=== PATIENT | female | born 1960 | race Caucasian/White ===

== ENCOUNTER 2016-05-31 15:18 | Emergency (ER) | payer SELFPAY ==
[~2016-05-31] VITALS: Ht 170.2 cm; Wt 59.0 kg
[~2016-05-31 15:18] MED LIST: ACET1TAB40 PO; AMIT75TA2 PO; CARB100T2 PO; CYCL-319 PO; DOCU-144 PO; ESTR1.2510 PO; FIORICET PO; GABA-526 PO; LORA1TAB PO; LOSA1TAB19 PO; NAPR-688 PO; NAPR550T3 PO; ONDA4TAB8 PO; PROM25TA14 PO; SMV40T PO
[2016-05-31 15:43] VITALS: Ht 170.2 cm; Wt 59.0 kg
== END 2016-05-31 20:56 | disposition left against medical advice (07) ==
LOC: E/R 15:18
DX: Z53.21 Procedure and treatment not carried out due to patient leaving prior to being seen by health care provider (principal)